=== PATIENT | female | born 1975 | race Caucasian/White ===

== ENCOUNTER → 2021-09-07 | Outpatient (CLI) | payer BC, OTHER ==
--- NOTE | 2021-09-08 19:24 | REPVR ---
PROCEDURE INFORMATION: Exam: MR Lumbar Spine Without Contrast Exam date and time: 09/07/2021 9:34 AM Age: 45 years old Clinical indication: Low back pain; Additional info: Intervertebral disc degeneration, lumbar region TECHNIQUE: Imaging protocol: Multiplanar magnetic resonance images of the lumbar spine without intravenous contrast. COMPARISON: No relevant prior studies available. FINDINGS: Vertebral body heights are maintained. No abnormal marrow signal. No cord compression. No abnormal cord signal. Conus medullaris terminates at the L1 level. Paravertebral soft tissues are unremarkable. L1-L2: No significant canal or foraminal narrowing. L2-L3: No significant canal or foraminal narrowing. L3-L4: Broad-based disc bulge causes mild bilateral foraminal narrowing. No significant canal narrowing. L4-L5: No significant canal or foraminal narrowing. L5-S1: No significant canal or foraminal narrowing. IMPRESSION: No acute findings in the lumbar spine. No evidence of nerve root compression. Electronically signed by: Kevin Rivers On 09/08/2021 19:23:39 PM
== END ==
LOC: M PLAIMG 08:51
PROVIDERS: ATTEND Orthopaedic Surgery
DX: M51.26 Other intervertebral disc displacement, lumbar region (principal)